=== PATIENT | female | born 2005 | race Two or more races ===

== ENCOUNTER 2024-10-11 09:23 | Emergency (ER) | payer OTHER ==
[~2024-10-11] VITALS: Ht 157.5 cm; Wt 62.6 kg
[2024-10-11] MEDS ORDERED: PRENATAL 19 CH1 EACH (09:31)
[2024-10-11 10:13] LABS: HEMATOCRIT 41.3 % (36.0-45.00); HEMOGLOBIN 13.8 g/dL (12.0-15.00); MEAN CELL VOLUME 87.5 fL (80.00-100.00); MEAN CORPUSCULAR HEMOGLOBIN 29.4 pg (27.00-32.0); MEAN CORPUSCULAR HGB CONC 33.6 g/dl (32.0-36.0); PLATELET COUNT 206 K/uL (150-450); RED BLOOD COUNT 4.72 M/uL (4.00-6.00); RED CELL DISTRIBUTION WIDTH 15.3 % (11.5-14.5)
[2024-10-11 10:41] LABS: CALCIUM 9.2 mg/dL (8.5-10.1); CREATININE SERUM 0.63 mg/dL (0.55-1.02); GFR 119.29; POTASSIUM 4.14 mEq/L (3.5-5.1)
[2024-10-11 12:39] LABS: URINE APPEARANCE Clear; URINE BILIRRUBIN Negative (NEGATIVE); URINE BLOOD Negative; URINE COLOR Yellow; URINE GLUCOSE Negative (NEGATIVE); URINE KETONE 15 (NEGATIVE); URINE LEUKOCYTE Trace; URINE NITRATE Negative; URINE PROTEIN Negative (NEGATIVE); URINE UROBILINOGEN 0.2 E.U./dl
[2024-10-11 12:42] LABS: URINE BACTERIA 223.9 uL (0.0-1933); URINE EPITHELIAL CELLS 5.8 uL (0.0-38.8); URINE WBC 5.3 uL (0.0-23.2)
[2024-10-11 12:57] LABS: URINE CAST 0.29 uL (0.0-1.40); URINE RBC 1.7 uL (0.0-20.8)
== END 2024-10-11 13:27 | disposition home or self-care (01) ==
LOC: ER 09:23
PROVIDERS: General Practice
DX: O99.891 Other specified diseases and conditions complicating pregnancy (principal); Z3A.19 19 weeks gestation of pregnancy; R10.9 Unspecified abdominal pain; V49.3XXA Car occupant (driver) (passenger) injured in unspecified nontraffic accident, initial encounter; Y93.89 Activity, other specified; Y92.413 State road as the place of occurrence of the external cause

== ENCOUNTER 2024-11-22 18:16 | Emergency (ER) | payer OTHER ==
[~2024-11-22] VITALS: Ht 157.5 cm; Wt 63.5 kg
[~2024-11-22 18:16] MED LIST: PRENATAL 19 CH1 EACH
[2024-11-22] MEDS ORDERED: MONISTAT 745 GM VAG (19:37)
== END 2024-11-22 19:51 | disposition home or self-care (01) ==
LOC: ER 18:19
DX: O23.32 Infections of other parts of urinary tract in pregnancy, second trimester (principal); Z3A.18 18 weeks gestation of pregnancy; B37.31 Acute candidiasis of vulva and vagina

== ENCOUNTER 2024-12-27 00:14 | Outpatient (CLI) | payer OTHER ==
[2024-12-26 23:40] VITALS: BP 113/79
[~2024-12-27 00:14] MED LIST changes: +MONISTAT 745 GM VAG
[2024-12-27 04:11] VITALS: BP 102/74
[2024-12-27 07:20] VITALS: BP 90/60
[2024-12-27] MEDS ORDERED: MONISTAT 745 GM VAG (09:15)
[2024-12-27 11:01] VITALS: BP 116/74
[2024-12-27 11:03] VITALS: BP 116/74
== END 2024-12-27 11:12 | disposition home or self-care (01) ==
LOC: OBS/DEL 00:14
PROVIDERS: ATTEND Specialist
DX: O26.892 Other specified pregnancy related conditions, second trimester (principal); Z3A.23 23 weeks gestation of pregnancy

== ENCOUNTER 2025-03-03 12:30 | Outpatient (CLI) | payer OTHER ==
[~2025-03-03] VITALS: Ht 157.5 cm; Wt 69.4 kg
[2025-03-03 11:01] VITALS: BP 110/71
[2025-03-03] MEDS ORDERED: RINGERS SOLUTION,LACTATED 1,000 ML IV SCH (12:45)
[2025-03-03] MEDS ORDERED: CEFAZOLIN SODIUM 1,000 MG VIAL IV ONE (12:45)
[2025-03-03] MEDS ORDERED: CEFAZOLIN SODIUM 1,000 MG VIAL ONE ×2 (12:51→15:22)
[2025-03-03] MEDS ORDERED: PRENATA CHEWAB1 EACH PO (13:15)
[2025-03-03 13:22] LABS: HEMATOCRIT 36.5 % (36.0-45.00); HEMOGLOBIN 12.1 g/dL (12.0-15.00); MEAN CELL VOLUME 90.2 fL (80.00-100.00); MEAN CORPUSCULAR HEMOGLOBIN 29.9 pg (27.00-32.0); MEAN CORPUSCULAR HGB CONC 33.1 g/dl (32.0-36.0); PLATELET COUNT 179 K/uL (150-450); RED BLOOD COUNT 4.05 M/uL (4.00-6.00); RED CELL DISTRIBUTION WIDTH 13.3 % (11.5-14.5)
[2025-03-03 13:51] LABS: INR 0.98; PARTIAL THROMBOPLASTIN TIME 32.5 SECONDS (22.0-34.0); PROTHROMBIN TIME 10.7 SECONDS (9.0-11.5)
[2025-03-03 14:29] LABS: ALBUMIN 2.5 gm/dL (3.4-5.0); BILIRUBIN TOTAL 0.28 mg/dL (0.3-1.2); CALCIUM 8.5 mg/dL (8.5-10.1); CREATININE SERUM 0.53 mg/dL (0.55-1.02); GFR 145.62; GLOBULINA 3.8 G/DL (2.4-3.5); POTASSIUM 3.96 mEq/L (3.5-5.1); TOTAL PROTEIN 6.3 gm/dL (6.4-8.2)
[2025-03-03 15:57] VITALS: BP 115/76
[2025-03-03 18:00] LABS: URINE APPEARANCE Cloudy; URINE BILIRRUBIN Negative (NEGATIVE); URINE BLOOD Negative; URINE COLOR Yellow; URINE GLUCOSE Negative (NEGATIVE); URINE LEUKOCYTE Large; URINE NITRATE Negative; URINE PROTEIN Negative (NEGATIVE); URINE UROBILINOGEN 0.2 E.U./dl
[2025-03-03] MEDS ORDERED: CEFAZOLIN SODIUM 1,000 MG VIAL IV SCH (18:00)
[2025-03-03 18:04] LABS: URINE BACTERIA 2909.2 uL (0.0-1933); URINE EPITHELIAL CELLS 57.6 uL (0.0-38.8); URINE WBC 24.3 uL (0.0-23.2)
[2025-03-03 18:23] LABS: URINE CAST 0.44 uL (0.0-1.40); URINE KETONE 40 (NEGATIVE); URINE RBC 1.3 uL (0.0-20.8)
[2025-03-03 19:33] VITALS: BP 94/59
[2025-03-03 23:15] VITALS: BP 100/64
[2025-03-04 04:12] VITALS: BP 100/64
[2025-03-04 06:03] VITALS: BP 93/62; O2SAT 98
[2025-03-04] MEDS ORDERED: CEPHALEXIN500 MG PO (07:26)
[2025-03-04 13:01] VITALS: BP 100/76
== END 2025-03-04 13:06 | disposition home or self-care (01) ==
LOC: OBS/DEL 12:30
PROVIDERS: ATTEND Specialist
DX: O23.43 Unspecified infection of urinary tract in pregnancy, third trimester (principal); N39.0 Urinary tract infection, site not specified; O26.849 Uterine size-date discrepancy, unspecified trimester; O36.8199 Decreased fetal movements, unspecified trimester, other fetus; O60.00 Preterm labor without delivery, unspecified trimester; Z3A.32 32 weeks gestation of pregnancy

== ENCOUNTER 2025-03-29 10:02 | Emergency (ER) | payer OTHER ==
[~2025-03-29] VITALS: Ht 157.5 cm; Wt 72.1 kg
[~2025-03-29 10:02] MED LIST changes: +CEPHALEXIN500 MG PO; +PRENATA CHEWAB1 EACH PO
[2025-03-29 13:49] LABS: BASO % 0.2 % (0.1-1.2); EOS # 0.13 (0.04-0.54); EOS % 1.3 % (0.7-7.0); HEMATOCRIT 39.1 % (34.1-44.9); HEMOGLOBIN 13.3 g/dL (11.2-15.7); LYMPH # 1.74 (1.18-3.74); LYMPH % 17.6 % (19.3-53.1); MONO # 0.68 (0.24-0.82); MONO % 6.9 % (4.7-12.5); NEUT # 7.26 (1.56-6.13); NEUT % 73.6 % (34.0-71.1); PLATELET COUNT 197 K/uL (163-369); RED BLOOD COUNT 4.58 M/uL (3.93-5.22)
[2025-03-29 15:02] LABS: COVID-19 AG NEGATIVE (NEGATIVE)
[2025-03-29 15:03] LABS: INFLUENZA A AG NEGATIVE (NEGATIVE)
[2025-03-29 15:04] LABS: INFLUENZA B AG POSITIVE (NEGATIVE)
[2025-03-29] MEDS ORDERED: ACETAMINOPHEN500 M1 PO (15:58)
[2025-03-29] MEDS ORDERED: GILTUSS HONEY118 ML PO (15:58)
[2025-03-29] MEDS ORDERED: OSEL75CA PO (15:58)
[2025-03-29] MEDS ORDERED: OSELTAMIVIR PHOSPHATE 75 MG CAPSULE PO ONE ×2 (15:59→16:00)
== END 2025-03-29 16:11 | disposition home or self-care (01) ==
LOC: ER 10:02
PROVIDERS: Preventive Medicine Public Health & General Preventive Medicine
DX: O98.513 Other viral diseases complicating pregnancy, third trimester (principal); Z3A.36 36 weeks gestation of pregnancy; J10.1 Influenza due to other identified influenza virus with other respiratory manifestations; Z20.822 Contact with and (suspected) exposure to COVID-19

== ENCOUNTER 2025-04-08 15:15 | Inpatient (IN) | payer OTHER ==
[~2025-04-08] VITALS: Ht 157.5 cm; Wt 2.7 kg
[~2025-04-08 15:15] MED LIST changes: +ACETAMINOPHEN500 M1 PO; +GILTUSS HONEY118 ML PO; +OSEL75CA PO
[2025-04-19] VITALS (8 sets, daily range): BP systolic 108–128; BP diastolic 69–87
[2025-04-19] MEDS ORDERED: AMPICILLIN SODIUM 2,000 MG VIAL IV STA (01:39)
[2025-04-19] MEDS ORDERED: CEPHALEXIN750 MG PO (01:41)
[2025-04-19] MEDS ORDERED: RINGERS SOLUTION,LACTATED 1,000 ML IV SCH (01:45)
[2025-04-19] MEDS ORDERED: AMPICILLIN SODIUM 2,000 MG VIAL ONE (01:45)
[2025-04-19] MEDS ORDERED: MORPHINE SULFATE 4 MG/ML CARTRIDGE IV ONE (01:45)
[2025-04-19 02:12] LABS: BASO % 0.2 % (0.1-1.2); EOS # 0.03 (0.04-0.54); EOS % 0.3 % (0.7-7.0); HEMATOCRIT 41.2 % (34.1-44.9); HEMOGLOBIN 13.9 g/dL (11.2-15.7); LYMPH # 2.13 (1.18-3.74); LYMPH % 20.2 % (19.3-53.1); MEAN CORPUSCULAR HEMOGLOBIN 29.3 pg (25.6-32.2); MONO % 7.6 % (4.7-12.5); NEUT # 7.52 (1.56-6.13); NEUT % 71.2 % (34.0-71.1); PLATELET COUNT 190 K/uL (163-369); RED BLOOD COUNT 4.74 M/uL (3.93-5.22); RED CELL DISTRIBUTION WIDTH 13.6 % (11.6-14.4)
[2025-04-19 02:36] LABS: INR 0.94; PARTIAL THROMBOPLASTIN TIME 33.1 SECONDS (22.0-34.0); PROTHROMBIN TIME 10.3 SECONDS (9.0-11.5)
[2025-04-19 02:43] LABS: ALBUMIN 2.7 gm/dL (3.4-5.0); BILIRUBIN TOTAL 0.42 mg/dL (0.3-1.2); CALCIUM 9.3 mg/dL (8.5-10.1); CREATININE SERUM 0.5 mg/dL (0.55-1.02); GFR 155.75; GLOBULINA 3.9 G/DL (2.4-3.5); POTASSIUM 4.25 mEq/L (3.5-5.1); TOTAL PROTEIN 6.6 gm/dL (6.4-8.2)
[2025-04-19 03:15] LABS: URINE APPEARANCE Clear; URINE BILIRRUBIN Negative (NEGATIVE); URINE BLOOD Negative; URINE COLOR Yellow; URINE GLUCOSE Negative (NEGATIVE); URINE KETONE Negative (NEGATIVE); URINE LEUKOCYTE Moderate; URINE NITRATE Negative; URINE PROTEIN Negative (NEGATIVE)
[2025-04-19 03:19] LABS: URINE BACTERIA 351.2 uL (0.0-1933); URINE EPITHELIAL CELLS 14.8 uL (0.0-38.8); URINE WBC 19.1 uL (0.0-23.2)
[2025-04-19 03:35] LABS: URINE RBC 1.1 uL (0.0-20.8)
[2025-04-19] MEDS ORDERED: AMPICILLIN SODIUM 1,000 MG VIAL ONE ×2 (04:20→07:58)
[2025-04-19] MEDS ORDERED: AMPICILLIN SODIUM 1,000 MG VIAL IV SCH (05:00)
[2025-04-19] MEDS ORDERED: OXYTOCIN 20 UNITS/500ML RL PIGGYBAG IV ONE (07:16)
[2025-04-19] MEDS ORDERED: OXYTOCIN 500 ML IV SCH (07:45)
[2025-04-19] MEDS ORDERED: MORPHINE SULFATE 4 MG/ML VIAL IV STA (09:53)
[2025-04-19] MEDS ORDERED: OXYTOCIN 10 UNITS/ML VIAL ONE (12:49)
[2025-04-19] MEDS ORDERED: ERYTHROMYCIN BASE OPHT 1GM EACH TUBE OP ONE (12:50)
[2025-04-19] MEDS ORDERED: MORPHINE SULFATE 4 MG/ML VIAL IV PRN (14:45)
[2025-04-19] MEDS ORDERED: CEFAZOLIN SODIUM 1,000 MG VIAL IV SCH (20:00)
[2025-04-20 03:13] LABS: BASO % 0.2 % (0.1-1.2); HEMATOCRIT 37.6 % (34.1-44.9); LYMPH # 1.77 (1.18-3.74); LYMPH % 8.1 % (19.3-53.1); MEAN CORPUSCULAR HEMOGLOBIN 29.7 pg (25.6-32.2); MONO # 1.16 (0.24-0.82); MONO % 5.3 % (4.7-12.5); NEUT # 18.77 (1.56-6.13); NEUT % 85.9 % (34.0-71.1); PLATELET COUNT 188 K/uL (163-369); RED BLOOD COUNT 4.37 M/uL (3.93-5.22); RED CELL DISTRIBUTION WIDTH 13.4 % (11.6-14.4)
[2025-04-20] MEDS ORDERED: OxyCODONE HCL 5 MG TABLET (ROXICODONE) PO PRN (06:30)
[2025-04-20] MEDS ORDERED: ACETAMINOPHEN 500 MG GEL..CAP PO PRN (06:30)
[2025-04-20 08:49] VITALS: BP 117/79
[2025-04-20 15:42] VITALS: BP 122/84
[2025-04-21] VITALS: BP 104/69
[2025-04-21 08:29] VITALS: BP 113/70
[2025-04-21 16:25] VITALS: BP 115/84
[2025-04-22 01:27] VITALS: BP 120/80
[2025-04-22] MEDS ORDERED: IBUPROFEN800 MG PO (07:43)
[2025-04-22 10:44] VITALS: BP 129/89
== END 2025-04-22 14:21 | disposition home or self-care (01) | DRG 788 ==
LOC: LDR 04-19 01:37 → O/R 04-19 13:33 → OB/GYN 04-19 15:39
PROVIDERS: ADMIT Specialist; ATTEND Specialist
PROC: 4A1HXCZ Monitoring of Products of Conception, Cardiac Rate, External Approach (ICD-10-PCS; 2025-04-19)
PROC: 10D00Z1 Extraction of Products of Conception, Low, Open Approach (ICD-10-PCS; principal; 2025-04-19 14:45)
DX: O76 Abnormality in fetal heart rate and rhythm complicating labor and delivery (principal); O36.8330 Maternal care for abnormalities of the fetal heart rate or rhythm, third trimester, not applicable or unspecified; Z3A.39 39 weeks gestation of pregnancy; Z37.0 Single live birth

== ENCOUNTER 2025-04-24 14:21 | Emergency (ER) | payer OTHER ==
[~2025-04-24] VITALS: Ht 162.6 cm; Wt 72.6 kg
[~2025-04-24 14:21] MED LIST changes: +CEPHALEXIN750 MG PO; +IBUPROFEN800 MG PO
[2025-04-24] MEDS ORDERED: ACETAMINOPHEN 500 MG GEL..CAP PO ONE (16:15)
[2025-04-24 17:01] LABS: BASO % 0.2 % (0.1-1.2); EOS # 0.08 (0.04-0.54); EOS % 0.8 % (0.7-7.0); HEMATOCRIT 42.9 % (34.1-44.9); HEMOGLOBIN 14.5 g/dL (11.2-15.7); LYMPH # 2.37 (1.18-3.74); LYMPH % 23.3 % (19.3-53.1); MEAN CORPUSCULAR HEMOGLOBIN 29.2 pg (25.6-32.2); MONO # 0.63 (0.24-0.82); MONO % 6.2 % (4.7-12.5); NEUT # 7.04 (1.56-6.13); NEUT % 69.2 % (34.0-71.1); PLATELET COUNT 319 K/uL (163-369); RED BLOOD COUNT 4.97 M/uL (3.93-5.22); RED CELL DISTRIBUTION WIDTH 13.3 % (11.6-14.4)
[2025-04-24 17:27] LABS: BILIRUBIN TOTAL 0.5 mg/dL (0.3-1.2); CALCIUM 8.9 mg/dL (8.5-10.1); CREATININE SERUM 0.74 mg/dL (0.55-1.02); GFR 99.07; GLOBULINA 5.2 G/DL (2.4-3.5); POTASSIUM 3.9 mEq/L (3.5-5.1); TOTAL PROTEIN 8.2 gm/dL (6.4-8.2)
[2025-04-24 18:10] LABS: PH,URINE 7.5 (5.0-8.0); URINE APPEARANCE Clear; URINE BILIRRUBIN Negative (NEGATIVE); URINE BLOOD Negative; URINE COLOR Yellow; URINE GLUCOSE Negative (NEGATIVE); URINE KETONE Negative (NEGATIVE); URINE LEUKOCYTE Negative; URINE NITRATE Negative; URINE PROTEIN Negative (NEGATIVE)
[2025-04-24 18:14] LABS: URINE BACTERIA 29.3 uL (0.0-1933); URINE WBC 13.9 uL (0.0-23.2)
[2025-04-24 18:17] LABS: URINE RBC 1.1 uL (0.0-20.8)
[2025-04-24 18:28] LABS: COVID-19 AG NEGATIVE (NEGATIVE)
[2025-04-24 18:29] LABS: INFLUENZA A AG NEGATIVE (NEGATIVE); INFLUENZA B AG POSITIVE (NEGATIVE)
== END 2025-04-24 20:04 | disposition home or self-care (01) ==
LOC: ER 14:21
PROVIDERS: Emergency Medicine
DX: J10.1 Influenza due to other identified influenza virus with other respiratory manifestations (principal); I10 Essential (primary) hypertension; Z20.822 Contact with and (suspected) exposure to COVID-19